=== PATIENT | female | born 1965 | race American Indian/Alaskan Native ===

== ENCOUNTER 2021-01-17 04:23 | Emergency (ER) | payer MEDICAID ==
[2021-01-17] MEDS ORDERED: SODIUM CHLORIDE 0.9% 500 ML 500 ML IV ONE (04:43)
[2021-01-17] MEDS ORDERED: ONDANSETRON 4 MG/2 ML INJ IV ONE (04:43)
[2021-01-17] MEDS ORDERED: MORPHINE 4 MG/1 ML INJ IV ONE ×2 (04:43→06:15)
[2021-01-17 05:20] LABS: Basophils % (Auto) 0.5 % (0.0-1.8); Eosinophils # (Auto) 0.8 K/mm3 (0.0-0.4); Eosinophils % (Auto) 7.5 % (0.0-4.3); Hematocrit 36.7 % (30.3-42.9); Hemoglobin 12.5 gm/dl (10.1-14.3); Lymphocytes # (Auto) 3.7 K/mm3 (1.2-5.4); Lymphocytes % (Auto) 34.7 % (13.4-35.0); Mean Corpuscular HGB Conc 34 % (30-34); Mean Corpuscular Volume 84 fl (79-97); Monocytes # (Auto) 0.6 K/mm3 (0.0-0.8); Monocytes % (Auto) 5.6 % (0.0-7.3); Platelet Count 413 K/mm3 (140-440); Red Blood Count 4.35 M/mm3 (3.65-5.03); Red Cell Distribution Width 15.1 % (13.2-15.2)
[2021-01-17 05:39] LABS: BUN/Creatinine Ratio 18; Blood Urea Nitrogen 14 mg/dL (7-17); Calcium 9.3 mg/dL (8.4-10.2); Hemolysis Index 0
--- NOTE | 2021-01-17 05:51 | Emergency Department Report ---
HPI - General Chief Complaint: Wound/Laceration Time Seen by Provider: 01/17/21 04:43 - HPI HPI: This is a 55-year-old -[place] female who presents to the emergency department with complaint of postoperative pain to the right chest wall after the patient had a mastectomy done on the of this month, about 5 days ago. The surgery was done by a Dr. Roy at [facility]. Patient says that pain medication was called in for her, but since she is in pain management that she is unable to fill the prescription for the pain medication until this coming week, around Monday. She has been using ibuprofen without any relief. She has been having pain to the right chest wall, but denies any swelling, skin color changes, pus, fever, shortness of breath. Patient also has a history of chronic low back pain and fibroids for which she undergoes the pain management. ED Past Medical Hx - Past Medical History Hx Hypertension: Yes Hx Diabetes: Yes Hx Renal Disease: Yes (mwf) Hx Seizures: Yes - Surgical History Additional Surgical History: R mastectomy - Social History Smoking Status: Current Every Day Smoker Substance Use Type: Alcohol ED Review of Systems ROS: Stated complaint: GENERAL PAIN Other details as noted in HPI Comment: All other systems reviewed and negative Constitutional: denies: chills, fever Eyes: denies: eye pain, vision change ENT: denies: ear pain, throat pain Respiratory: denies: cough, shortness of breath Cardiovascular: chest pain (Right chest wall). denies: palpitations Gastrointestinal: denies: abdominal pain, vomiting Genitourinary: denies: dysuria, discharge Musculoskeletal: denies: joint swelling, arthralgia Skin: denies: rash, change in color Neurological: denies: headache, weakness Physical Exam - Physical Exam Vital Signs: Vital Signs 01/17/21 04:28 Temperature 98.2 F Pulse Rate 103 H Respiratory 18 Rate Blood Pressure 124/73 O2 Sat by Pulse 97 Oximetry Physical Exam: GENERAL: The patient is well-developed well-nourished. HENT: Normocephalic. Atraumatic. Patient has moist mucous membranes. EYES: Extraocular motions are intact. NECK: Supple. Trachea is midline. CHEST/LUNGS: Clear to auscultation. There is no respiratory distress noted. There is some mild tenderness to palpation along the right chest wall where the patient has a recent mastectomy. HEART/CARDIOVASCULAR: Regular. There is no tachycardia. There is no murmur. ABDOMEN: Abdomen is soft, nontender. Patient has normal bowel sounds. SKIN: Skin is warm and dry. The mastectomy incision is seen to the right chest wall without any surrounding erythema, bleeding, purulent discharge. NEURO: The patient is awake, alert, and oriented. The patient is cooperative. The patient has no focal neurologic deficits. Normal speech. MUSCULOSKELETAL: There is no tenderness or deformity. There is no limitation range of motion. ED Course Vital Signs 01/17/21 04:28 Temperature 98.2 F Pulse Rate 103 H Respiratory 18 Rate Blood Pressure 124/73 O2 Sat by Pulse 97 Oximetry - Reevaluation(s) Reevaluation #1: 01/17/21 05:49 The right chest wall/breast examination was done with nurse Monae Leiva at bedside to customer care consultant and assist. ED Medical Decision Making - Lab Data Result diagrams: 01/17/21 05:00 01/17/21 05:00 - Medical Decision Making This patient presented to the emergency department with right-sided chest wall pain status post mastectomy. She has been unable to fill any of her pain medication as she is currently in pain management treatment and has to wait a few more days until she can refill her narcotic pain medication. With a customer care consultant at bedside, I looked at the patient's right chest wall and the incision from the mastectomy but there are no signs of any postoperative infection. Vital signs reassuring including being afebrile. Labs unremarkable including CBC and metabolic panel. Chest x-ray does not show any pneumonia, pleural effusions, pneumothorax, or any other acute process. The patient was given 2 different doses of IV analgesia with improvement of her discomfort. She appears safe for discharge back home to follow-up with her surgeon. She will return to the emergency department with any worsening of her symptoms or with any acute distress. Critical Care Time: No Critical care attestation.: If time is entered above; I have spent that time in minutes in the direct care of this critically ill patient, excluding procedure time. ED Disposition Clinical Impression: Post-operative pain, Post-mastectomy pain Disposition: DC-01 TO HOME OR SELFCARE Is pt being admited?: No Condition: Stable Additional Instructions: Please follow-up with your breast surgeon and pain management physician. Please make sure you are seen immediately with any signs/symptoms of infection such as increased pain, increased swelling, surrounding redness, development of fever, or discharge of pus. Return to the emergency department with any worsening of your symptoms, new or concerning symptoms not addressed during this current emergency department visit, or with any acute distress. Referrals: Breast Surgeon, Your [Other] - 2-3 Days Time of Disposition: 05:52
--- NOTE | 2021-01-17 06:24 | XRay Report ---
CHEST 1 VIEW 01/17/2021 5:15 AM INDICATION / CLINICAL INFORMATION: Chest pain. COMPARISON: None available. FINDINGS: SUPPORT DEVICES: None. HEART / MEDIASTINUM: No significant abnormality. LUNGS / PLEURA: No significant pulmonary or pleural abnormality. No pneumothorax. ADDITIONAL FINDINGS: No significant additional findings. IMPRESSION: 1. No acute findings. Signer Name: Joseph Singh MD Signed: 01/17/2021 6:20 AM Workstation Name: [email or web address]
[2021-01-17 06:42] VITALS: BP 115/73
== END 2021-01-17 07:10 | disposition home or self-care (01) ==
LOC: ED 04:23
DX: G89.18 Other acute postprocedural pain (principal); R07.89 Other chest pain; I10 Essential (primary) hypertension; E11.9 Type 2 diabetes mellitus without complications; F17.200 Nicotine dependence, unspecified, uncomplicated; Z90.11 Acquired absence of right breast and nipple; Z72.89 Other problems related to lifestyle; Z98.890 Other specified postprocedural states; Z79.899 Other long term (current) drug therapy
CPT/HCPCS: 36415; 71045; 80048; 85025; 96361; 96374; 96375; 96376; 99284; J2270; J2405; J7040